=== PATIENT | female | born 1945 | race Caucasian/White ===

== ENCOUNTER 2020-06-13 06:03 | Inpatient (IN) ==
[2020-06-07 11:45] LABS: Basophils # 0.1 10*3/uL (0.0-0.2); Basophils % 0.4 % (0.0-0.8); Eosinophils % 0.1 % (0.00-10.9); Hematocrit 35.6 VOL% (35.7-47.0); Hemoglobin 10.8 GM/DL (12.0-16.0); Hgb & Hct Comparison OK; Immature Granulocytes % 1.2 %; Immature Granulocytes Absolute 0.15 #; Lymphocytes # 0.5 10*3/uL (1.4-4.0); Lymphocytes % 3.6 % (21.3-54.2); Mean Corpuscular HGB Conc 30.3 GM/DL (32-36); Mean Corpuscular Hemoglobin 28 PG (27-34); Mean Corpuscular Volume 92.2 FL (87-102); Monocytes # 0.5 10*3/uL (0.11-0.8); Monocytes % 3.7 % (1.7-12.7); Neutrophils # 11.8 10*3/uL (1.4-7.4); Platelet Count 407 T/CUMM (130-400)
[2020-06-07 11:50] LABS: Anion Gap 10.1 MMOL/L (5.0-15.0); Potassium 4.1 MMOL/L (3.5-5.1)
[2020-06-07 12:25] LABS: Band Neutrophils 6 % (0-10); Hypochromasia Slight; Lymphocytes 4 % (20-55); Monocytes 2 % (2-15); Platelet Estimate Normal; Polychromasia Slight; Segmented Neutrophils 88 % (50-85); Total Cells Counted 100
[~2020-06-13 06:03] MED LIST: ALVIMOPAN 12 MG CAPSULE ONE; ERTAPENEM 1,000 MG VIAL ONE
[2020-06-13] MEDS ORDERED: TISSUE ADHESIVE 1 EACH APPLICATOR TOP ONE (06:27)
[2020-06-13] MEDS ORDERED: INDOCYANINE GREEN 25 MG VIAL IV ONE (06:27)
[2020-06-13] MEDS ORDERED: LORazepam 2 MG/1 ML VIAL IV STA (06:32)
[2020-06-13] MEDS ORDERED: LORazepam 2 MG/1 ML VIAL ONE (06:37)
[2020-06-13] MEDS: LACTATED RINGERS 1,000 ML IV SCH ×4 (06:50→11:45)
[2020-06-13] MEDS ORDERED: ALVIMOPAN 12 MG CAPSULE PO ONE (07:00)
[2020-06-13] MEDS ORDERED: ERTAPENEM 1,000 MG in SODIUM CHLORIDE 0.9% 100 ML IV ONE (07:00)
[2020-06-13] MEDS ORDERED: ONDANSETRON 4 MG/2 ML VIAL IV PRN ×2 (11:54→12:27)
[2020-06-13] MEDS ORDERED: ALBUTEROL/IPRATROPIUM 3 ML NEB RESP TX ONE ×2 (12:00→12:10)
[2020-06-13] MEDS ORDERED: propofoL 200 MG/20 ML VIAL IV ONE (12:16)
[2020-06-13] MEDS ORDERED: ROCURONIUM 100 MG/10 ML VIAL IV ONE (12:17)
[2020-06-13] MEDS ORDERED: SEVOFLURANE 1 UNIT/15 MINUTE INH ONE (12:17)
[2020-06-13] MEDS ORDERED: LIDOCAINE 2% 5 ML VIAL ONE (12:17)
[2020-06-13] MEDS ORDERED: SUCCINYLCHOLINE 200 MG/10 ML VIAL ONE (12:17)
[2020-06-13] MEDS ORDERED: PHENYLEPHRINE DRIP 20 MG/250 ML PREMIX IV ONE (12:18)
[2020-06-13] MEDS ORDERED: MIDAZOLAM 2 MG/2 ML VIAL ONE (12:19)
[2020-06-13] MEDS ORDERED: PHENYLEPHRINE 1 MG/10 ML SYRINGE IV ONE (12:20)
[2020-06-13] MEDS ORDERED: PHENYLEPHRINE 10 MG/1 ML VIAL IV ONE (12:20)
[2020-06-13] MEDS ORDERED: fentaNYL 100 MCG/2 ML VIAL ONE (12:20)
[2020-06-13] MEDS ORDERED: SODIUM CHLORIDE 0.9% 250 ML IV ONE (12:20)
[2020-06-13] MEDS ORDERED: SUFentanil 50 MCG/ML AMP ONE (12:20)
[2020-06-13] MEDS ORDERED: KETAMINE 500 MG/10 ML VIAL ONE (12:21)
[2020-06-13] MEDS ORDERED: ONDANSETRON 4 MG/2 ML VIAL ONE (12:22)
[2020-06-13] MEDS ORDERED: ALBUMIN 5% 12.5 GM/250 ML VIAL IV ONE (12:22)
[2020-06-13] MEDS ORDERED: DEXAMETHASONE 4 MG/1 ML VIAL ONE (12:23)
[2020-06-13] MEDS ORDERED: GLYCOPYRROLATE 0.4 MG/2 ML VIAL ONE (12:23)
[2020-06-13] MEDS ORDERED: SCOPOLAMINE 1.5 MG PATCH TRANSDERM ONE (12:23)
[2020-06-13] MEDS ORDERED: BUPIVACAINE MPF 0.25% 30 ML VIAL ONE (12:24)
[2020-06-13] MEDS ORDERED: ACETAMINOPHEN 1,000 MG/100 ML VIAL IV ONE (12:24)
[2020-06-13] MEDS ORDERED: NEOSTIGMINE 10 MG/10 ML VIAL ONE (12:24)
[2020-06-13] MEDS ORDERED: LACTATED RINGERS 2,000 ML IV ONE (12:24)
[2020-06-13] MEDS: HYDROmorphone 2 MG/1 ML VIAL IV PRN ×2 (12:30→13:22)
[2020-06-13 12:32] LABS: Hematocrit 36.6 VOL% (35.7-47.0); Hemoglobin 11.5 GM/DL (12.0-16.0); Hgb & Hct Comparison OK
[2020-06-13 13:02] LABS: Apearance,Urine CLEAR (Clear); Bilirubin,Urine Negative (Negative); Blood, Urine Negative (Negative); Glucose,Urine (UA) Negative (Negative); Hyaline Casts,Urine 1 /LPF (0-3); Ketones,Urine Negative (Negative); Mucus,Urine Occasional /LPF (Occasional); Nitrite,Urine Negative (Negative); Protein,Urine Negative; RBC,Urine 3 /HPF (0-4); Urine Color Yellow (Yellow); Urine Specific Gravity 1.015 (1.001-1.035); Urine Urobilinogen < 2.0 EU/DL (0.2-1.0); WBC,Urine 4 /HPF (0-6)
[2020-06-13 13:03] LABS: Culture Indicated,Urine Not Indicated
[2020-06-13] MEDS ORDERED: PHENYLEPHRINE DRIP 40 MG/250 ML PREMIX IV PRN (13:39)
[2020-06-13] MEDS: DEXTROSE 5% LACTATED RINGERS 1,000 ML IV SCH ×2 (16:30→21:40)
[2020-06-13] MEDS: cefOXitin 2,000 MG in SYRINGE 1 EACH IV SCH ×2 (16:30→22:01)
[2020-06-13] MEDS: MORPHINE 4 MG/1 ML VIAL IV PRN ×2 (16:30→20:19)
[2020-06-13 20:15] LABS: Hemoglobin 10.9 GM/DL (12.0-16.0); Hgb & Hct Comparison OK
[2020-06-14] MEDS: MORPHINE 4 MG/1 ML VIAL IV PRN ×5 (00:54→20:47)
[2020-06-14] MEDS: DEXTROSE 5% LACTATED RINGERS 1,000 ML IV SCH ×3 (00:54→14:17)
[2020-06-14 03:56] LABS: Basophils % 0.3 % (0.0-0.8); Hematocrit 33.6 VOL% (35.7-47.0); Hemoglobin 10.1 GM/DL (12.0-16.0); Hgb & Hct Comparison OK; Immature Granulocytes % 1.1 %; Immature Granulocytes Absolute 0.13 #; Lymphocytes # 1.2 10*3/uL (1.4-4.0); Lymphocytes % 10.2 % (21.3-54.2); Mean Corpuscular HGB Conc 30.1 GM/DL (32-36); Mean Corpuscular Hemoglobin 28 PG (27-34); Mean Corpuscular Volume 92.3 FL (87-102); Monocytes # 0.8 10*3/uL (0.11-0.8); Monocytes % 6.6 % (1.7-12.7); Neutrophils # 9.5 10*3/uL (1.4-7.4); Neutrophils % 81.8 % (38.7-73.9); Platelet Count 351 T/CUMM (130-400)
[2020-06-14 04:19] LABS: Anion Gap 6.9 MMOL/L (5.0-15.0); Osmolality,Calculated 275.8 MOS/KG (273-304); Potassium 3.9 MMOL/L (3.5-5.1)
[2020-06-14] MEDS: cefOXitin 2,000 MG in SYRINGE 1 EACH IV SCH (04:50)
[2020-06-14] MEDS: LEVOTHYROXINE 100 MCG TABLET PO SCH (07:00)
[2020-06-14] MEDS: NEBIVOLOL 5 MG TABLET PO SCH (09:00)
[2020-06-14] MEDS: predniSONE 20 MG TABLET PO SCH (09:05)
[2020-06-14] MEDS: MAGNESIUM CHLORIDE 64 MG TABLET PO SCH (09:05)
[2020-06-15] MEDS: LEVOTHYROXINE 100 MCG TABLET PO SCH (06:00)
[2020-06-15] MEDS: predniSONE 20 MG TABLET PO SCH (08:56)
[2020-06-15] MEDS: ENOXAPARIN 40 MG/0.4 ML SYRINGE SUBCUT SCH (08:56)
[2020-06-15] MEDS: NEBIVOLOL 5 MG TABLET PO SCH (08:57)
[2020-06-15] MEDS: MORPHINE 4 MG/1 ML VIAL IV PRN ×2 (08:57→21:56)
[2020-06-15] MEDS: MAGNESIUM CHLORIDE 64 MG TABLET PO SCH (08:57)
[2020-06-15] MEDS: DEXTROSE 5% LACTATED RINGERS 1,000 ML IV SCH ×2 (12:46→21:56)
[2020-06-16] MEDS: LEVOTHYROXINE 100 MCG TABLET PO SCH (06:44)
[2020-06-16] MEDS: cefOXitin 1,000 MG in SYRINGE 1 EACH IV SCH ×3 (08:50→21:28)
[2020-06-16] MEDS: MAGNESIUM CHLORIDE 64 MG TABLET PO SCH (08:51)
[2020-06-16] MEDS: ENOXAPARIN 40 MG/0.4 ML SYRINGE SUBCUT SCH (08:51)
[2020-06-16] MEDS: predniSONE 20 MG TABLET PO SCH (08:52)
[2020-06-16] MEDS: NEBIVOLOL 5 MG TABLET PO SCH (08:52)
[2020-06-16] MEDS: MORPHINE 4 MG/1 ML VIAL IV PRN (12:44)
[2020-06-16] MEDS: DEXTROSE 5% LACTATED RINGERS 1,000 ML IV SCH ×2 (13:00→23:14)
[2020-06-17] MEDS: MORPHINE 4 MG/1 ML VIAL IV PRN ×4 (00:35→21:15)
[2020-06-17] MEDS: cefOXitin 1,000 MG in SYRINGE 1 EACH IV SCH ×4 (02:48→20:38)
[2020-06-17] MEDS: LEVOTHYROXINE 100 MCG TABLET PO SCH (06:20)
[2020-06-17] MEDS: MAGNESIUM CHLORIDE 64 MG TABLET PO SCH (09:25)
[2020-06-17] MEDS: NEBIVOLOL 5 MG TABLET PO SCH (09:25)
[2020-06-17] MEDS: ENOXAPARIN 40 MG/0.4 ML SYRINGE SUBCUT SCH (09:25)
[2020-06-17] MEDS: predniSONE 20 MG TABLET PO SCH (09:25)
[2020-06-17] MEDS: DEXTROSE 5% LACTATED RINGERS 1,000 ML IV SCH (15:29)
[2020-06-17] MEDS: SULFAMETHOX/TRIMETHOPRIM 800-160 MG TABLET PO SCH (20:37)
[2020-06-17] MEDS ORDERED: clonazePAM 0.5 MG TABLET PO SCH (21:00)
[2020-06-18] MEDS: cefOXitin 1,000 MG in SYRINGE 1 EACH IV SCH ×2 (02:27→08:38)
[2020-06-18] MEDS: DEXTROSE 5% LACTATED RINGERS 1,000 ML IV SCH (04:09)
[2020-06-18] MEDS: LEVOTHYROXINE 100 MCG TABLET PO SCH (06:18)
[2020-06-18] MEDS: NEBIVOLOL 5 MG TABLET PO SCH (08:37)
[2020-06-18] MEDS: SULFAMETHOX/TRIMETHOPRIM 800-160 MG TABLET PO SCH (08:37)
[2020-06-18] MEDS: MAGNESIUM CHLORIDE 64 MG TABLET PO SCH (08:37)
[2020-06-18] MEDS: ENOXAPARIN 40 MG/0.4 ML SYRINGE SUBCUT SCH (08:38)
[2020-06-18] MEDS: predniSONE 20 MG TABLET PO SCH (08:38)
[2020-06-18] MEDS: MORPHINE 4 MG/1 ML VIAL IV PRN (11:45)
[2020-06-18 11:56] VITALS: BP 131/67
== END 2020-06-18 13:30 | disposition home health service (06) ==
LOC: N.OR 06:03 → N.SDSINP 06:11 → N.ICU 13:59 → N.4E 06-14 15:43
PROVIDERS: ADMIT Surgery; ATTEND Surgery